=== PATIENT | male | born 1960 | race Caucasian/White ===

== ENCOUNTER 2018-08-14 04:21 | Emergency (ER) | payer MEDICARE, MEDICAID ==
[2018-08-14] MEDS: ACETAMINOPHEN 500 MG TAB PO (06:28)
== END 2018-08-14 07:30 | disposition home or self-care (01) ==
LOC: E/R 04:21
DX: I16.0 Hypertensive urgency (principal); R51 Headache; I10 Essential (primary) hypertension
CPT/HCPCS: 70450; 93005; 99284-25